=== PATIENT | female | born 1960 | race Caucasian/White ===

== ENCOUNTER 2018-11-24 19:38 | Emergency (ER) | payer MEDICAID ==
[~2018-11-24] VITALS: Ht 162.6 cm; Wt 60.9 kg
[2018-11-24 20:01] VITALS: BP 118/79
[2018-11-24] MEDS ORDERED: SULF1TAB49 PO (21:02)
[2018-11-24] MEDS ORDERED: ONDA4TAB6 PO (21:03)
== END 2018-11-24 21:25 | disposition home or self-care (01) ==
LOC: ER 19:39
DX: N39.0 Urinary tract infection, site not specified (principal); Z88.0 Allergy status to penicillin; Z79.899 Other long term (current) drug therapy
CPT/HCPCS: 99283

== ENCOUNTER 2019-06-19 07:01 | Emergency (ER) | payer MEDICAID ==
[~2019-06-19] VITALS: Ht 162.6 cm; Wt 58.1 kg
[~2019-06-19 07:01] MED LIST: ONDA4TAB6 PO
[2019-06-19 07:10] VITALS: BP 126/72
[2019-06-19 07:52] LABS: CLARITY,URINE SLIGHTLY CLOUDY (Clear); COLOR,URINE STRAW (Yellow); GLUCOSE, URINE NEGATIVE (Neg); KETONES,URINE NEGATIVE (Neg); LEUKOCYTE ESTERASE ,URINE LARGE (Neg); NITRITES, URINE NEGATIVE (Neg); OCCULT BLOOD,URINE LARGE (Neg); PROTEIN,URINE NEGATIVE (Neg); UROBILINOGEN,URINE 0.2 E.U/dL (0.2-1.0)
[2019-06-19 07:54] LABS: UA COLLECTION TYPE CLN CATCH MIDSTREAM
[2019-06-19 08:20] LABS: BACTERIA,URINE 2+ /HPF (Neg); SQUAMOUS EPITHELIAL CELL,UR FEW /LPF (FEW); WBC,URINE 50-100 /HPF (0-4)
[2019-06-19 08:21] LABS: MUCUS STRANDS FEW /LPF (Neg); TRANSITIONAL EPI CELLS,URINE FEW /HPF; WBC CLUMPS,URINE FEW /HPF (NEGATIVE)
[2019-06-19] MEDS ORDERED: CEPH-572 PO (08:26)
== END 2019-06-19 08:45 | disposition home or self-care (01) ==
LOC: ER 07:02
DX: N39.0 Urinary tract infection, site not specified (principal); Z88.0 Allergy status to penicillin; Z79.899 Other long term (current) drug therapy
CPT/HCPCS: 81001; 87077; 87088; 87186; 99283